=== PATIENT | female | born 1965 | race African-American/Black ===

== ENCOUNTER 2022-02-03 13:31 | Inpatient (IN) | payer OTHER ==
[~2022-02-03 13:31] MED LIST: Iopamidol 370 76% 100 ML VIAL ONE
[2022-02-03] MEDS ORDERED: Aspirin 325 MG TAB ONE (14:03)
[2022-02-03 14:38] LABS: Hemoglobin 13.4 g/dL (12.0-15.5); Mean Corpuscular HGB CONC 34.2 g/dL (32.0-36.0); Mean Corpuscular Hemoglobin 31.2 pg (27.0-33.0); Mean Corpuscular Volume 91.2 fl (81.6-98.3); Mean Platelet Volume 10.7 fl (7.4-10.4); Platelet Count 242 10x3/uL (150-450); RBC Distribution Width 12.5 % (11.5-14.5); White Blood Cell (WBC) Count 5.4 10x3/uL (3.5-10.5)
[2022-02-03 14:51] LABS: ALT (SGPT) 10 U/L (8-55); AST (SGOT) 14 U/L (5-34); Albumin 4.1 g/dL (3.5-5.0); Alkaline Phosphatase 124 U/L (40-110); Anion Gap 16 mmol/L (10-20); BUN (Urea Nitrogen) 9 mg/dL (9.8-20.1); Bilirubin, Total 0.5 mg/dL (0.2-1.2); Calc. Creatinine Clearance 0 mL/min (70-130); Carbon Dioxide 24 mmol/L (22-29); Chloride 103 mmol/L (98-107); Globulin 2.8 g/dL (2.4-3.5); Glucose 261 mg/dL (70-105); Magnesium 1.3 mg/dL (1.6-2.6); Potassium 3.8 mmol/L (3.5-5.1); Protein, Total 6.9 g/dL (6.0-8.3); Sodium 139 mmol/L (136-145)
[2022-02-03] MEDS ORDERED: Magnesium 2 GM/50 ML BAG (IN WATER) ONE ×3 (15:06→23:45)
[2022-02-03 15:14] LABS: CKMB 1.9 ng/mL (0-6.6)
[2022-02-03 15:25] LABS: Lymphocytes 50 % (21-51); Monocytes 12 % (0-10); Reactive Lymphocytes 3 % (0-10)
[2022-02-03 15:26] LABS: MDiff Complete? YES; Platelet Morphology Comment Appears Adequate; RBC Morphology Normal
[2022-02-03] MEDS ORDERED: Nitroglycerin 0.4 MG TAB 1 EACH ONE (17:11)
[2022-02-03] MEDS ORDERED: Enoxaparin Sodium 100 MG/ML SYRINGE ONE (17:12)
[2022-02-03] MEDS ORDERED: Dextrose 5% in Water 1,000 ML IV PRN (17:23)
[2022-02-03] MEDS ORDERED: Dextrose 50% Abboject 50 ML SYRINGE SLOW IVP PRN (17:23)
[2022-02-03] MEDS ORDERED: Acetaminophen 325 MG TAB PO PRN (17:23)
[2022-02-03] MEDS ORDERED: Nitroglycerin 0.4 MG TAB (25 Tab Bottle) SL PRN (17:27)
[2022-02-03] MEDS ORDERED: Electrolyte Replacement Protocol 1 EACH FS SCH (17:30)
[2022-02-03] MEDS ORDERED: Sodium Chloride 0.9% 1,000 ML IV SCH (17:30)
[2022-02-03] MEDS ORDERED: Magnesium Sulfate 4 GM in Sodium Chloride 0.9% 250 ML 250 ML IVPB SCH (17:30)
[2022-02-03 18:34] LABS: Troponin I 0.036 ng/mL (< 0.028)
[2022-02-03 20:52] LABS: Troponin I 0.034 ng/mL (< 0.028)
[2022-02-03 20:58] VITALS: BMI 46.9
[2022-02-03] MEDS ORDERED: Calcitonin,Synthetic 200 UNITS/ML MDV SC SCH (21:30)
[2022-02-03] MEDS: Magnesium 2 GM/50 ML(in water) 2 GM in Premix Bag 1 BAG IVPB SCH ×2 (22:02→23:42)
[2022-02-03] MEDS ORDERED: Labetalol HCl 100 MG/20 ML VIAL SLOW IVP SCH (22:30)
[2022-02-03] MEDS: Sodium Chloride 0.9% 1,000 ML IV SCH (23:42)
[2022-02-04 00:16] LABS: Hemoglobin A1c 10.9 % (4.0-6.0)
[2022-02-04] MEDS ORDERED: hydrALAZINE 20 MG/ML VIAL SLOW IVP SCH (00:45)
[2022-02-04] MEDS ORDERED: Morphine 4 MG/ML VIAL SLOW IVP SCH (00:45)
[2022-02-04] MEDS ORDERED: cloNIDine 0.1 MG TAB PO SCH (00:45)
[2022-02-04 01:37] LABS: SARS-CoV-2 NAA Rapid Test Not Detected (NotDetected)
[2022-02-04] MEDS ORDERED: Promethazine HCl 25 MG/ML VIAL IM SCH (02:30)
[2022-02-04] MEDS: HumaLOG 300 UNITS/3 ML VIAL SC PRN ×2 (02:48→12:36)
[2022-02-04] MEDS ORDERED: Promethazine HCl 12.5 MG, Admixture Fee 1 EACH in Sodium Chloride 0.9% 50 ML IVPB SCH (03:00)
[2022-02-04] MEDS: Sodium Chloride 0.9% 1,000 ML IV SCH ×4 (04:56→20:30)
[2022-02-04 05:36] LABS: #Eosinphils 0.1 10x3/uL (0.0-0.5); #Monocytes 0.7 10x3/uL (0.0-1.1); %Basophils 0.3 % (0.0-2.0); %Eosinophils 1.3 % (0.0-6.0); %Lymphocytes 16.9 % (18.0-47.0); %Monocytes 6.8 % (0.0-10.0); %Neutrophils 74.3 % (40.0-75.0); Hemoglobin 14.2 g/dL (12.0-15.5); Mean Corpuscular HGB CONC 34.1 g/dL (32.0-36.0); Mean Corpuscular Hemoglobin 31.1 pg (27.0-33.0); Mean Corpuscular Volume 91.2 fl (81.6-98.3); Mean Platelet Volume 10.6 fl (7.4-10.4); Platelet Count 240 10x3/uL (150-450); RBC Distribution Width 12.6 % (11.5-14.5); Red Blood Cell (RBC) Count 4.56 10x6/uL (3.90-5.03); White Blood Cell (WBC) Count 10.8 10x3/uL (3.5-10.5)
[2022-02-04 08:01] LABS: ALT (SGPT) 11 U/L (8-55); AST (SGOT) 13 U/L (5-34); Albumin 4.1 g/dL (3.5-5.0); Alkaline Phosphatase 128 U/L (40-110); Anion Gap 18 mmol/L (10-20); BUN (Urea Nitrogen) 8 mg/dL (9.8-20.1); Bilirubin, Total 0.5 mg/dL (0.2-1.2); Calc. Creatinine Clearance 144 mL/min (70-130); Calcium 11.4 mg/dL (7.8-10.44); Carbon Dioxide 21 mmol/L (22-29); Cardiac Risk 4.9 (Less than 4.5); Chloride 106 mmol/L (98-107); Cholesterol 201 mg/dl (< 200 Desired); Globulin 3.2 g/dL (2.4-3.5); Glucose 367 mg/dL (70-105); HDL Cholesterol 41 mg/dL (>60 Neg Risk); LDL Cholesterol, Calculated 109 mg/dL; Magnesium 1.8 mg/dL (1.6-2.6); Potassium 3.5 mmol/L (3.5-5.1); Protein, Total 7.3 g/dL (6.0-8.3); Sodium 141 mmol/L (136-145); Triglycerides 254 mg/dL (Less than 150)
[2022-02-04] MEDS ORDERED: ALPRAZolam 1 MG TAB PO SCH ×3 (09:00→21:00)
[2022-02-04] MEDS: Aspirin Chewable 81 MG TAB PO SCH (09:12)
[2022-02-04] MEDS: Amlodipine 10 MG TAB PO SCH (09:12)
[2022-02-04] MEDS ORDERED: glipiZIDE 5 MG TAB PO SCH (10:00)
[2022-02-04] MEDS ORDERED: Ondansetron ODT 4 MG TAB PO PRN (10:30)
[2022-02-04] MEDS: Lidocaine 2% Viscous Solution 10 ML, Aluminum & Magnesium Hydroxide 30 ML SSW SCH ×2 (10:44→14:54)
[2022-02-04] MEDS ORDERED: Ketorolac Tromethamine 30 MG/ML VIAL IVP SCH (10:45)
[2022-02-04] MEDS ORDERED: Magnesium 2 GM/50 ML(in water) 2 GM in Premix Bag 1 BAG IVPB SCH (12:00)
[2022-02-04] MEDS ORDERED: Potassium Chloride 20 MEQ TAB PO SCH (12:00)
[2022-02-04] MEDS ORDERED: Cholecalciferol 1,000 UNITS (25 MCG) TAB PO SCH (12:00)
[2022-02-04 12:13] LABS: Phosphorus Less than 1.0 mg/dL (2.3-4.7)
[2022-02-04 12:33] LABS: Ref Lab Test Ordered PTHRP; Reference Lab Name LABCORP
[2022-02-04] MEDS: Sucralfate 1 GM TAB PO SCH ×3 (12:37→21:11)
[2022-02-04] MEDS ORDERED: Potassium Phosphate 30 MMOL in Sodium Chloride 0.9% 250 ML 250 ML IVPB SCH (15:00)
[2022-02-04 15:55] LABS: Bilirubin Neg (Negative); Blood, Urine 50 (Negative); Clarity Clear (Clear); Glucose, Urine (Dipstick) >=1000 mg/dL (Negative); Ketone, Urine 5 mg/dL (Negative); Leukocyte Negative (Negative); Nitrite Negative (Negative); Protein, Urine (Dipstick) Negative (Neg-Trace); Urobilinogen Normal mg/dL (Less than 2)
[2022-02-04 15:57] LABS: Urine Culture Reflex No No
[2022-02-04 16:09] LABS: RBC/HPF 0-3 HPF (0-3)
[2022-02-04 16:11] LABS: Bacteria/HPF 1+ HPF (None Seen)
[2022-02-04] MEDS: hydrALAZINE 25 MG TAB PO SCH (17:02)
[2022-02-04 19:12] LABS: Phosphorus 2.9 mg/dL (2.3-4.7)
[2022-02-04] MEDS: glipiZIDE 5 MG TAB PO SCH (21:11)
[2022-02-05] MEDS: Sodium Chloride 0.9% 1,000 ML IV SCH ×4 (03:17→20:22)
[2022-02-05 05:31] LABS: Hemoglobin 13.6 g/dL (12.0-15.5); Mean Corpuscular HGB CONC 33.8 g/dL (32.0-36.0); Mean Corpuscular Hemoglobin 31.1 pg (27.0-33.0); Mean Corpuscular Volume 91.8 fl (81.6-98.3); Mean Platelet Volume 10.3 fl (7.4-10.4); Platelet Count 238 10x3/uL (150-450); RBC Distribution Width 12.8 % (11.5-14.5); Red Blood Cell (RBC) Count 4.38 10x6/uL (3.90-5.03); White Blood Cell (WBC) Count 6.5 10x3/uL (3.5-10.5)
[2022-02-05 05:34] LABS: MDiff Complete? YES; Manual Diff?? YES
[2022-02-05] MEDS: HumaLOG 300 UNITS/3 ML VIAL SC PRN ×2 (05:46→20:21)
[2022-02-05 05:53] LABS: Band 1 % (5-11); Lymphocytes 35 % (21-51); Monocytes 10 % (0-10); Reactive Lymphocytes 6 % (0-10)
[2022-02-05 05:54] LABS: Platelet Morphology Comment Appears Adequate
[2022-02-05 05:57] LABS: Neutrophil 48 % (42-75)
[2022-02-05 05:58] LABS: ALT (SGPT) 7 U/L (8-55); AST (SGOT) 12 U/L (5-34); Albumin 3.5 g/dL (3.5-5.0); Alkaline Phosphatase 108 U/L (40-110); Anion Gap 11 mmol/L (10-20); BUN (Urea Nitrogen) 6 mg/dL (9.8-20.1); Bilirubin, Total 0.5 mg/dL (0.2-1.2); Calc. Creatinine Clearance 177 mL/min (70-130); Calcium 11.9 mg/dL (7.8-10.44); Carbon Dioxide 23 mmol/L (22-29); Chloride 111 mmol/L (98-107); Globulin 2.7 g/dL (2.4-3.5); Glucose 155 mg/dL (70-105); Magnesium 1.5 mg/dL (1.6-2.6); Potassium 3.3 mmol/L (3.5-5.1); Protein, Total 6.2 g/dL (6.0-8.3); Sodium 142 mmol/L (136-145)
[2022-02-05 06:33] LABS: Phosphorus 2.3 mg/dL (2.3-4.7)
[2022-02-05] MEDS: hydrALAZINE 25 MG TAB PO SCH ×2 (08:34→17:46)
[2022-02-05] MEDS: Cholecalciferol 1,000 UNITS (25 MCG) TAB PO SCH (08:34)
[2022-02-05] MEDS: Aspirin Chewable 81 MG TAB PO SCH (08:34)
[2022-02-05] MEDS: Amlodipine 10 MG TAB PO SCH (08:34)
[2022-02-05] MEDS: Sucralfate 1 GM TAB PO SCH ×4 (08:34→20:21)
[2022-02-05] MEDS: glipiZIDE 5 MG TAB PO SCH ×2 (08:34→20:21)
[2022-02-05] MEDS ORDERED: Potassium Chloride 20 MEQ TAB PO SCH (09:00)
[2022-02-05] MEDS ORDERED: Magnesium 2 GM/50 ML(in water) 2 GM in Premix Bag 1 BAG IVPB SCH (09:00)
[2022-02-05] MEDS ORDERED: Lisinopril 5 MG TAB PO SCH (11:00)
[2022-02-05] MEDS ORDERED: Zoledronic Acid 4 MG in Sodium Chloride 0.9% 100 ML IVPB SCH (17:15)
[2022-02-06] MEDS: Sodium Chloride 0.9% 1,000 ML IV SCH ×3 (01:57→21:38)
[2022-02-06 05:04] LABS: Hemoglobin 13.3 g/dL (12.0-15.5); Mean Corpuscular HGB CONC 34.1 g/dL (32.0-36.0); Mean Corpuscular Hemoglobin 31.4 pg (27.0-33.0); Mean Platelet Volume 10.6 fl (7.4-10.4); Platelet Count 223 10x3/uL (150-450); RBC Distribution Width 12.8 % (11.5-14.5); Red Blood Cell (RBC) Count 4.24 10x6/uL (3.90-5.03); White Blood Cell (WBC) Count 5.9 10x3/uL (3.5-10.5)
[2022-02-06 05:09] LABS: MDiff Complete? YES; Manual Diff?? YES
[2022-02-06 05:25] LABS: ALT (SGPT) 12 U/L (8-55); AST (SGOT) 20 U/L (5-34); Albumin 3.5 g/dL (3.5-5.0); Alkaline Phosphatase 99 U/L (40-110); Anion Gap 12 mmol/L (10-20); BUN (Urea Nitrogen) 6 mg/dL (9.8-20.1); Bilirubin, Total 0.5 mg/dL (0.2-1.2); Calc. Creatinine Clearance 170 mL/min (70-130); Calcium 11.9 mg/dL (7.8-10.44); Carbon Dioxide 22 mmol/L (22-29); Chloride 110 mmol/L (98-107); Globulin 2.6 g/dL (2.4-3.5); Glucose 134 mg/dL (70-105); Magnesium 1.4 mg/dL (1.6-2.6); Potassium 3.5 mmol/L (3.5-5.1); Protein, Total 6.1 g/dL (6.0-8.3); Sodium 140 mmol/L (136-145)
[2022-02-06 05:31] LABS: Eosinophils 1 % (0-10); Lymphocytes 76 % (21-51); Monocytes 1 % (0-10); Neutrophil 22 % (42-75)
[2022-02-06 05:32] LABS: Platelet Morphology Comment Appears Adequate
[2022-02-06] MEDS: PHOS-NAK 1 PKT PACK PO SCH ×2 (05:53→11:24)
[2022-02-06] MEDS: Magnesium 2 GM/50 ML(in water) 2 GM in Premix Bag 1 BAG IVPB SCH ×2 (05:54→08:33)
[2022-02-06] MEDS ORDERED: Potassium Chloride 20 MEQ TAB PO SCH (06:00)
[2022-02-06] MEDS ORDERED: metFORMIN 500 MG TAB PO SCH (07:30)
[2022-02-06] MEDS: Sucralfate 1 GM TAB PO SCH ×4 (08:33→21:38)
[2022-02-06] MEDS: hydrALAZINE 25 MG TAB PO SCH ×2 (08:33→17:31)
[2022-02-06] MEDS: glipiZIDE 5 MG TAB PO SCH ×2 (08:34→21:38)
[2022-02-06] MEDS: Cholecalciferol 1,000 UNITS (25 MCG) TAB PO SCH (08:34)
[2022-02-06] MEDS: Aspirin Chewable 81 MG TAB PO SCH (08:34)
[2022-02-06] MEDS: Amlodipine 10 MG TAB PO SCH (08:34)
[2022-02-06] MEDS ORDERED: SEMAGLUTIDE 7 MG PO SCH (09:00)
[2022-02-06] MEDS ORDERED: Lisinopril 10 MG TAB PO SCH (09:00)
[2022-02-06] MEDS ORDERED: Lisinopril 5 MG TAB PO SCH (09:00)
[2022-02-06 10:33] LABS: Potassium 3.9 mmol/L (3.5-5.1)
[2022-02-07] MEDS: Sodium Chloride 0.9% 1,000 ML IV SCH ×2 (03:22→09:08)
[2022-02-07 05:21] LABS: #Monocytes 0.5 10x3/uL (0.0-1.1); #Neutrophils 2.9 10x3/uL (1.5-8.4); %Basophils 0.4 % (0.0-2.0); %Eosinophils 0.5 % (0.0-6.0); %Lymphocytes 35.5 % (18.0-47.0); %Monocytes 9.8 % (0.0-10.0); %Neutrophils 53.3 % (40.0-75.0); Hemoglobin 14.1 g/dL (12.0-15.5); Mean Corpuscular Hemoglobin 31.4 pg (27.0-33.0); Mean Corpuscular Volume 89.8 fl (81.6-98.3); Mean Platelet Volume 11.1 fl (7.4-10.4); Platelet Count 134 10x3/uL (150-450); RBC Distribution Width 12.9 % (11.5-14.5); Red Blood Cell (RBC) Count 4.49 10x6/uL (3.90-5.03); White Blood Cell (WBC) Count 5.5 10x3/uL (3.5-10.5)
[2022-02-07 05:39] LABS: ALT (SGPT) 12 U/L (8-55); AST (SGOT) 22 U/L (5-34); Albumin 3.8 g/dL (3.5-5.0); Alkaline Phosphatase 113 U/L (40-110); Anion Gap 17 mmol/L (10-20); BUN (Urea Nitrogen) 9 mg/dL (9.8-20.1); Bilirubin, Total 0.4 mg/dL (0.2-1.2); Calc. Creatinine Clearance 181 mL/min (70-130); Calcium 11.1 mg/dL (7.8-10.44); Carbon Dioxide 18 mmol/L (22-29); Chloride 112 mmol/L (98-107); Globulin 3.1 g/dL (2.4-3.5); Glucose 109 mg/dL (70-105); Magnesium 1.5 mg/dL (1.6-2.6); Protein, Total 6.9 g/dL (6.0-8.3); Sodium 143 mmol/L (136-145)
[2022-02-07] MEDS ORDERED: Magnesium 2 GM/50 ML(in water) 2 GM in Premix Bag 1 BAG IVPB SCH (06:00)
[2022-02-07 06:04] LABS: Phosphorus 1.3 mg/dL (2.3-4.7)
[2022-02-07] MEDS ORDERED: Potassium Phosphate 30 MMOL in Sodium Chloride 0.9% 250 ML 250 ML IVPB SCH (06:30)
[2022-02-07] MEDS: PHOS-NAK 1 PKT PACK PO SCH ×4 (06:41→18:42)
[2022-02-07] MEDS: hydrALAZINE 25 MG TAB PO SCH ×2 (09:07→17:15)
[2022-02-07] MEDS: Sucralfate 1 GM TAB PO SCH ×4 (09:07→20:46)
[2022-02-07] MEDS: glipiZIDE 5 MG TAB PO SCH ×2 (09:08→20:46)
[2022-02-07] MEDS: Cholecalciferol 1,000 UNITS (25 MCG) TAB PO SCH (09:08)
[2022-02-07] MEDS: Aspirin Chewable 81 MG TAB PO SCH (09:08)
[2022-02-07] MEDS: Lisinopril 10 MG TAB PO SCH (09:08)
[2022-02-07] MEDS: Amlodipine 10 MG TAB PO SCH (09:08)
[2022-02-07] MEDS: Lactated Ringer's 1,000 ML IV SCH (14:33)
[2022-02-08] MEDS: Lactated Ringer's 1,000 ML IV SCH ×2 (01:00→10:00)
[2022-02-08 05:19] LABS: ALT (SGPT) 12 U/L (8-55); AST (SGOT) 19 U/L (5-34); Albumin 3.7 g/dL (3.5-5.0); Alkaline Phosphatase 103 U/L (40-110); Anion Gap 12 mmol/L (10-20); BUN (Urea Nitrogen) 6 mg/dL (9.8-20.1); Bilirubin, Total 0.5 mg/dL (0.2-1.2); Calc. Creatinine Clearance 189 mL/min (70-130); Calcium 10.5 mg/dL (7.8-10.44); Carbon Dioxide 21 mmol/L (22-29); Chloride 109 mmol/L (98-107); Globulin 2.9 g/dL (2.4-3.5); Glucose 70 mg/dL (70-105); Magnesium 1.6 mg/dL (1.6-2.6); Phosphorus 1.8 mg/dL (2.3-4.7); Potassium 3.3 mmol/L (3.5-5.1); Protein, Total 6.6 g/dL (6.0-8.3); Sodium 139 mmol/L (136-145)
[2022-02-08 05:28] LABS: Hemoglobin 13.7 g/dL (12.0-15.5); Mean Corpuscular HGB CONC 34.9 g/dL (32.0-36.0); Mean Corpuscular Hemoglobin 30.9 pg (27.0-33.0); Mean Corpuscular Volume 88.3 fl (81.6-98.3); Mean Platelet Volume 11.2 fl (7.4-10.4); Platelet Count 229 10x3/uL (150-450); Red Blood Cell (RBC) Count 4.44 10x6/uL (3.90-5.03); White Blood Cell (WBC) Count 8.1 10x3/uL (3.5-10.5)
[2022-02-08 05:44] LABS: #Monocytes 0.9 10x3/uL (0.0-1.1); #Neutrophils 4.1 10x3/uL (1.5-8.4); %Basophils 0.5 % (0.0-2.0); %Eosinophils 0.5 % (0.0-6.0); %Lymphocytes 37.1 % (18.0-47.0); %Monocytes 10.7 % (0.0-10.0); %Neutrophils 50.7 % (40.0-75.0)
[2022-02-08] MEDS ORDERED: Potassium Phosphate 30 MMOL in Sodium Chloride 0.9% 250 ML 250 ML IVPB SCH (06:00)
[2022-02-08] MEDS ORDERED: Magnesium 2 GM/50 ML(in water) 2 GM in Premix Bag 1 BAG IVPB SCH (09:00)
[2022-02-08] MEDS: Cholecalciferol 1,000 UNITS (25 MCG) TAB PO SCH (09:23)
[2022-02-08] MEDS: Amlodipine 10 MG TAB PO SCH (09:23)
[2022-02-08] MEDS: hydrALAZINE 25 MG TAB PO SCH (09:23)
[2022-02-08] MEDS: Aspirin Chewable 81 MG TAB PO SCH (09:23)
[2022-02-08] MEDS: Sucralfate 1 GM TAB PO SCH ×2 (09:23→11:42)
[2022-02-08] MEDS: Lisinopril 10 MG TAB PO SCH (09:24)
[2022-02-08] MEDS: glipiZIDE 5 MG TAB PO SCH (09:24)
[2022-02-08 12:56] VITALS: BP 116/68; TEMP 97.4
== END 2022-02-08 15:06 | disposition home or self-care (01) | DRG 641 ==
LOC: CSHERS 13:31 → CSHTELE 20:46 → OBSVTOIN 20:47
PROVIDERS: ADMIT Family Medicine; ATTEND Internal Medicine
DX: E83.52 Hypercalcemia (principal); Z68.42 Body mass index [BMI] 45.0-49.9, adult; R07.89 Other chest pain; I10 Essential (primary) hypertension; R10.13 Epigastric pain; F41.9 Anxiety disorder, unspecified; R00.1 Bradycardia, unspecified; E83.42 Hypomagnesemia; E11.9 Type 2 diabetes mellitus without complications; D72.829 Elevated white blood cell count, unspecified; E04.1 Nontoxic single thyroid nodule; E66.9 Obesity, unspecified; E55.9 Vitamin D deficiency, unspecified; E21.3 Hyperparathyroidism, unspecified; K43.2 Incisional hernia without obstruction or gangrene; R11.0 Nausea; Z20.822 Contact with and (suspected) exposure to COVID-19; Z98.51 Tubal ligation status; Z90.710 Acquired absence of both cervix and uterus; Z90.49 Acquired absence of other specified parts of digestive tract; Z98.890 Other specified postprocedural states; Z85.89 Personal history of malignant neoplasm of other organs and systems; Z87.442 Personal history of urinary calculi; Z79.899 Other long term (current) drug therapy; Z79.84 Long term (current) use of oral hypoglycemic drugs; Z79.82 Long term (current) use of aspirin
CPT/HCPCS: 36415; 36416; 70450; 71045; 71275; 74177; 76536; 80053; 80061; 81001; 82306; 82340; 82553; 83036; 83690; 83735; 83880; 83970; 84100; 84443; 84484; 85025; 93005; 93010; 93306; 94760; 96372; 96374; J0360; J0630; J1650; J1815; J2270; J2550; J3475; J3489; J3490; J7050; J7120; Q9967; U0002

== ENCOUNTER 2023-05-30 10:50 | Emergency (ER) | payer OTHER ==
[2023-05-30] MEDS ORDERED: Ketorolac Tromethamine 30 MG/ML VIAL ONE (12:41)
== END 2023-05-30 14:29 | disposition home or self-care (01) ==
LOC: CSHERS 10:50
DX: M25.561 Pain in right knee (principal); I10 Essential (primary) hypertension; E11.9 Type 2 diabetes mellitus without complications
CPT/HCPCS: 96372; J1885

== ENCOUNTER 2023-08-24 14:13 | Emergency (ER) | payer OTHER ==
[2023-08-24 15:47] LABS: SARS-CoV-2 NAA Rapid Test Not Detected (NotDetected)
[2023-08-24] MEDS ORDERED: guaiFENesin/Codeine Phosphate 100 mg/10 mg 5 ml UD Cup ONE (16:40)
[2023-08-24] MEDS ORDERED: guaiFENesin/Codeine Phosphate 100 mg/10 mg 5 ml UD Cup PO SCH (16:45)
== END 2023-08-24 16:44 | disposition home or self-care (01) ==
LOC: CSHERS 14:13
DX: J10.1 Influenza due to other identified influenza virus with other respiratory manifestations (principal); Z20.822 Contact with and (suspected) exposure to COVID-19; E11.9 Type 2 diabetes mellitus without complications; I10 Essential (primary) hypertension; E03.9 Hypothyroidism, unspecified
CPT/HCPCS: 71045

== ENCOUNTER 2024-03-04 16:21 | Observation (INO) | payer OTHER ==
[~2024-03-04 16:21] MED LIST changes: +Iopamidol 300 61% 100 ML VIAL FS ONE; -Iopamidol 370 76% 100 ML VIAL ONE
[2024-03-04 17:35] LABS: #Basophils 0.03 10x3/uL (0.0-0.2); #Eosinphils 0.01 10x3/uL (0.0-0.5); #Neutrophils 3.02 10x3/uL (1.5-8.4); %Basophils 0.5 % (0.0-2.0); %Eosinophils 0.2 % (0.0-6.0); %Lymphocytes 45.3 % (18.0-47.0); %Monocytes 6.3 % (0.0-10.0); %Neutrophils 47.1 % (40.0-75.0); Hematocrit 39.3 % (34.9-44.5); Hemoglobin 13.8 g/dL (12.0-15.5); Mean Corpuscular HGB CONC 35.1 g/dL (32.0-36.0); Mean Corpuscular Volume 88.3 fL (81.6-98.3); Mean Platelet Volume 10.7 fL (7.4-10.4); Platelet Count 232 10x3/uL (150-450); RBC Distribution Width 13.5 % (11.5-14.5); Red Blood Cell (RBC) Count 4.45 10x6/uL (3.90-5.03); White Blood Cell (WBC) Count 6.4 10x3/uL (3.5-10.5)
[2024-03-04 17:43] LABS: ALT (SGPT) 11 U/L (8-55); AST (SGOT) 14 U/L (5-34); Albumin 3.5 g/dL (3.5-5.0); Alkaline Phosphatase 59 U/L (40-110); Anion Gap 15 mmol/L (10-20); BUN (Urea Nitrogen) 15 mg/dL (9.8-20.1); Bilirubin, Total 0.2 mg/dL (0.2-1.2); Calc. Creatinine Clearance 0 mL/min (70-130); Calcium 9.4 mg/dL (7.8-10.44); Carbon Dioxide 22 mmol/L (22-29); Chloride 104 mmol/L (98-107); Estimated GFR 62; Globulin 3.8 g/dL (2.4-3.5); Glucose 369 mg/dL (70-105); Lipase 38 U/L (8-78); Potassium 3.7 mmol/L (3.5-5.1); Protein, Total 7.3 g/dL (6.0-8.3); Sodium 137 mmol/L (136-145)
[2024-03-04] MEDS ORDERED: Ketorolac Tromethamine 30 MG (1 mL) VIAL ONE (18:54)
[2024-03-04] MEDS ORDERED: hydrALAZINE 25 MG TAB ONE (18:54)
[2024-03-04] MEDS ORDERED: Ondansetron PF 4 MG/2 ML Vial IVP PRN (19:21)
[2024-03-04] MEDS ORDERED: Senokot S 8.6-50 MG TAB PO PRN (19:21)
[2024-03-04] MEDS ORDERED: Zolpidem Tartrate 5 MG TAB PO PRN (19:21)
[2024-03-04] MEDS ORDERED: Calcium Carbonate 500 MG ChewTAB PO PRN (19:21)
[2024-03-04] MEDS ORDERED: Dextrose 50% Abboject 50 ML SYRINGE SLOW IVP PRN (19:21)
[2024-03-04] MEDS ORDERED: Glucagon 1 MG/ML KIT IM PRN (19:21)
[2024-03-04] MEDS ORDERED: Dextrose 5% in Water 1,000 ML IV PRN (19:21)
[2024-03-04] MEDS ORDERED: Morphine 2 MG/ML VIAL SLOW IVP PRN (19:31)
[2024-03-04] MEDS ORDERED: HYDROcodone/Acetaminophen 5/325 mg Tablet PO PRN (19:31)
[2024-03-04] MEDS ORDERED: ALPRAZolam 0.5 MG TAB PO PRN (19:33)
[2024-03-04 20:50] VITALS: BMI 43.5
[2024-03-04] MEDS: Lactated Ringer's 1,000 ML IV SCH (20:52)
[2024-03-04] MEDS: hydrALAZINE 25 MG TAB PO SCH (20:54)
[2024-03-04] MEDS: Pantoprazole 40 MG VIAL IVP SCH (20:55)
[2024-03-04] MEDS: glipiZIDE 5 MG TAB PO SCH (20:55)
[2024-03-04] MEDS: Losartan 25 MG TAB PO SCH (20:56)
[2024-03-04] MEDS: HumaLOG 300 UNITS/3 ML VIAL SC PRN (21:15)
[2024-03-04] MEDS: hydrALAZINE 20 MG/ML VIAL SLOW IVP PRN (23:33)
[2024-03-05 03:55] LABS: Anion Gap 17 mmol/L (10-20); BUN (Urea Nitrogen) 15 mg/dL (9.8-20.1); Calc. Creatinine Clearance 142 mL/min (70-130); Calcium 9.2 mg/dL (7.8-10.44); Carbon Dioxide 20 mmol/L (22-29); Chloride 106 mmol/L (98-107); Estimated GFR 74; Glucose 237 mg/dL (70-105); Potassium 3.9 mmol/L (3.5-5.1); Sodium 139 mmol/L (136-145)
[2024-03-05 04:52] LABS: #Basophils 0.03 10x3/uL (0.0-0.2); #Eosinphils 0.01 10x3/uL (0.0-0.5); #Neutrophils 3.73 10x3/uL (1.5-8.4); %Basophils 0.4 % (0.0-2.0); %Eosinophils 0.1 % (0.0-6.0); %Lymphocytes 41.6 % (18.0-47.0); %Neutrophils 49.5 % (40.0-75.0); Hematocrit 38.9 % (34.9-44.5); Hemoglobin 13.2 g/dL (12.0-15.5); Mean Corpuscular HGB CONC 33.9 g/dL (32.0-36.0); Mean Corpuscular Hemoglobin 29.9 pg (27.0-33.0); Mean Platelet Volume 10.5 fL (7.4-10.4); Platelet Count 205 10x3/uL (150-450); RBC Distribution Width 13.7 % (11.5-14.5); Red Blood Cell (RBC) Count 4.42 10x6/uL (3.90-5.03); White Blood Cell (WBC) Count 7.5 10x3/uL (3.5-10.5)
[2024-03-05 04:58] LABS: Prothrombin Time 10.6 sec (9.5-12.1)
[2024-03-05] MEDS: cloNIDine 0.1 MG TAB PO SCH (05:11)
[2024-03-05] MEDS ORDERED: Amlodipine 10 MG TAB PO SCH (09:00)
[2024-03-05] MEDS: Amlodipine 10 MG TAB PO SCH (09:27)
[2024-03-05] MEDS: Pantoprazole 40 MG VIAL IVP SCH (09:28)
[2024-03-05] MEDS: Losartan 25 MG TAB PO SCH (09:28)
[2024-03-05] MEDS ORDERED: hydrALAZINE 20 MG/ML VIAL SLOW IVP PRN (11:56)
[2024-03-05] MEDS ORDERED: cloNIDine 0.1 MG TAB PO PRN (11:57)
[2024-03-05] MEDS: Acetaminophen 325 MG TAB PO PRN (15:20)
[2024-03-05] MEDS ORDERED: Sucralfate 1 GM TAB PO SCH (17:00)
[2024-03-05] MEDS: Loratadine 10 MG TAB PO SCH (20:39)
[2024-03-05] MEDS: ALPRAZolam 1 MG TAB PO SCH (20:39)
[2024-03-06 03:42] LABS: Hemoglobin 12.9 g/dL (12.0-15.5)
[2024-03-06 07:48] VITALS: BP 149/94; TEMP 98.2
[2024-03-06] MEDS: Aspirin Chewable 81 MG TAB PO SCH (09:05)
[2024-03-06 13:12] LABS: Hemoglobin A1c 10.5 % (4.0-6.0)
== END 2024-03-06 11:30 | disposition home or self-care (01) ==
LOC: CSHERS 16:21 → CSHTELE 19:31
PROVIDERS: ADMIT Student in an Organized Health Care Education/Training Program; ATTEND Family Medicine
DX: R10.32 Left lower quadrant pain (principal); K62.5 Hemorrhage of anus and rectum; I16.0 Hypertensive urgency; E11.65 Type 2 diabetes mellitus with hyperglycemia; E66.01 Morbid (severe) obesity due to excess calories; K21.9 Gastro-esophageal reflux disease without esophagitis; G47.30 Sleep apnea, unspecified; Z79.84 Long term (current) use of oral hypoglycemic drugs; Z79.82 Long term (current) use of aspirin; Z79.899 Other long term (current) drug therapy; F41.9 Anxiety disorder, unspecified; E21.3 Hyperparathyroidism, unspecified; J30.2 Other seasonal allergic rhinitis; Z98.51 Tubal ligation status; Z98.890 Other specified postprocedural states
CPT/HCPCS: 36415; 36416; 74177; 80048; 80053; 83036; 83690; 85014; 85018; 85025; 85610; 85730; 86140; 86850; 86900; 86901; 96375; 96376; C9113; G0378; J0360; J1815; J1885; J7120; Q9967

== ENCOUNTER 2024-08-03 18:32 | Emergency (ER) | payer OTHER ==
[2024-08-03 20:31] LABS: #Basophils 0.04 10x3/uL (0.0-0.2); #Eosinophils 0.03 10x3/uL (0.0-0.5); #Monocytes 0.63 10x3/uL (0.0-1.1); #Neutrophils 3.46 10x3/uL (1.5-8.4); %Basophils 0.6 % (0.0-2.0); %Eosinophils 0.5 % (0.0-6.0); %Lymphocytes 35.9 % (18.0-47.0); %Monocytes 9.7 % (0.0-10.0); Hemoglobin 13.8 g/dL (12.0-15.5); Mean Corpuscular HGB CONC 32.9 g/dL (32.0-36.0); Mean Corpuscular Hemoglobin 29.6 pg (27.0-33.0); Mean Corpuscular Volume 90.1 fL (81.6-98.3); Mean Platelet Volume 10.3 fL (7.4-10.4); Platelet Count 213 10x3/uL (150-450); RBC Distribution Width 13.2 % (11.5-14.5); Red Blood Cell (RBC) Count 4.66 10x6/uL (3.90-5.03); White Blood Cell (WBC) Count 6.5 10x3/uL (3.5-10.5)
[2024-08-03] MEDS ORDERED: Ketorolac Tromethamine 30 MG (1 mL) VIAL ONE (20:34)
[2024-08-03] MEDS ORDERED: Losartan 25 MG TAB ONE (20:38)
[2024-08-03 20:43] LABS: Anion Gap 14 mmol/L (10-20); BUN (Urea Nitrogen) 15 mg/dL (9.8-20.1); Calc. Creatinine Clearance 0 mL/min (70-130); Calcium 10.1 mg/dL (7.8-10.44); Carbon Dioxide 27 mmol/L (23-31); Chloride 102 mmol/L (98-107); Estimated GFR 61; Glucose 233 mg/dL (80-115); Sodium 139 mmol/L (136-145)
[2024-08-03 20:48] LABS: Troponin I 0.029 ng/mL (< 0.028)
[2024-08-03 23:29] LABS: Troponin I 0.028 ng/mL (< 0.028)
== END 2024-08-04 00:09 | disposition home or self-care (01) ==
LOC: CSHERS 18:32
DX: J06.9 Acute upper respiratory infection, unspecified (principal); E11.9 Type 2 diabetes mellitus without complications; I10 Essential (primary) hypertension
CPT/HCPCS: 36415; 71045; 80048; 83880; 84484; 85025; 87428; 93005; 93010; 96372; J1885